=== PATIENT | male | born 2000 | race African-American/Black ===

== ENCOUNTER 2023-12-13 14:39 | Emergency (ER) | payer OTHER ==
[2023-12-13 14:49] VITALS: BP 127/84; PULSE 89; RESP 18; TEMP 98.9; BMI 29.2
[2023-12-13] MEDS ORDERED: MECLIZINE HCL 25 MG TABLET (FP) ONE (16:08)
[2023-12-13] MEDS ORDERED: PSEUDOEPHEDRINE HCL 60 MG TABLET ONE (16:09)
[2023-12-13] MEDS: MECLIZINE HCL 25 MG TABLET (FP) PO ONE (16:12)
[2023-12-13] MEDS: PSEUDOEPHEDRINE HCL 60 MG TABLET PO ONE (16:12)
[2023-12-13] MEDS: SODIUM CHLORIDE 0.9% 1000 ML INFUS.BAG IV ONE (16:22)
[2023-12-13 16:36] LABS: HEMATOCRIT 43.6 % (35.4-49); HEMOGLOBIN 14.9 GM/dL (11.7-16.9); MCH 31.3 pg (25.7-33.7); MCHC 34.2 g/dl (32.0-35.9); MEAN CELL VOLUME 91.7 fl (80-96); MEAN PLT VOLUME 7.7 fl (7.5-11.1); PLATELET COUNT 166 10^3/uL (134-434); RBC 4.76 M/mm3 (4.00-5.60); RDW 13.2 % (11.9-15.9); WHITE BLOOD COUNT 4.6 K/mm3 (4.0-10.0)
[2023-12-13 16:55] LABS: POTASSIUM 4.5 mmol/L (3.5-5.1)
[2023-12-13 16:57] LABS: ALBUMIN 3.8 g/dl (3.4-5.0); BLOOD UREA NITROGEN 7.7 mg/dL (7-18); CALCIUM 8.9 mg/dL (8.5-10.1)
[2023-12-13 17:01] LABS: CREATININE 1.1 mg/dL (0.55-1.3)
[2023-12-13 17:02] LABS: BILIRUBIN,TOTAL 0.6 mg/dL (0.2-1); TOT PROT 7.4 g/dl (6.4-8.2)
[2023-12-13 17:36] LABS: OVALOCYTE 1+; TEAR DROP CELLS 1+
[2023-12-13 17:38] LABS: PLATELET ESTIMATE ADEQUATE
== END 2023-12-13 17:22 | disposition home or self-care (01) ==
LOC: JERFT 14:39
DX: R09.81 Nasal congestion (principal); R05.9 Cough, unspecified; R42 Dizziness and giddiness; J10.1 Influenza due to other identified influenza virus with other respiratory manifestations; J32.9 Chronic sinusitis, unspecified; Z20.822 Contact with and (suspected) exposure to COVID-19
CPT/HCPCS: 0241U-QW; 36415; 80053; 85025; 99283-25